=== PATIENT | female | born 1990 | race Caucasian/White ===

== ENCOUNTER 2017-04-15 19:11 | Emergency (ER) | END 2017-04-15 23:53 | disposition home or self-care (01) | DX: O21.9 Vomiting of pregnancy, unspecified (principal); O23.41 Unspecified infection of urinary tract in pregnancy, first trimester; R10.2 Pelvic and perineal pain; Z3A.08 8 weeks gestation of pregnancy | CPT/HCPCS: 36415; 76801; 80053; 81001; 84702; 85025; 86900; 86901; 87086; 96374; J2405; J7030; Z7502; Z7610 ==

== ENCOUNTER 2017-11-19 08:30 | Inpatient (IN) | END 2017-11-21 14:25 | disposition home or self-care (01) | DRG 775 ==